=== PATIENT | male | born 1955 | race Hispanic/Latino ===

== ENCOUNTER 2019-04-17 17:02 | Emergency (ER) | payer OTHER ==
[2019-04-17] MEDS ORDERED: LIDOCAINE HCL 1% 20 ML VIAL ONE (17:27)
[2019-04-17] MEDS ORDERED: TETANUS/DIPHTHERIA TOXOID [ADULT] 0.5 ML VIAL IM ONE (17:27)
[2019-04-17] MEDS ORDERED: CEFTRIAXONE SODIUM 1 GM ONE (17:27)
== END 2019-04-17 18:46 | disposition home or self-care (01) ==
LOC: EDH 17:02
DX: S61.412A Laceration without foreign body of left hand, initial encounter (principal); W45.8XXA Other foreign body or object entering through skin, initial encounter; Y93.89 Activity, other specified; Y92.89 Other specified places as the place of occurrence of the external cause; Y99.8 Other external cause status
CPT/HCPCS: 12041; 73130; 90471; 90714; 96372; 99284; J0696